=== PATIENT | male | born 1970 | race Caucasian/White ===

== ENCOUNTER 2017-01-08 14:56 | Emergency (ER) | payer OTHER ==
[2017-01-08 15:08] VITALS: BP 166/86
[2017-01-08 15:23] LABS: Hematocrit 40.4 % (42.0-52.0); Hemoglobin 14.2 gm/dL (13.5-18.0); Mean Cell Volume 82.3 fl (78-100); Mean Corpuscular Hemoglobin 28.9 pg (27-31); Mean Corpuscular Hgb Conc 35.1 g/dl (32-36); Mean Platelet Volume 9.4 fl (6.0-9.5); Neutrophil # 3.9 K/mm3 (1.3-6.0); Platelet Count 305 K/mm3 (150-450); Red Blood Count 4.91 M/mm3 (4.7-6.0); Red Cell Distribution Width 12.3 % (11.5-14.0); White Blood Count 6.2 K/mm3 (4.0-10.5)
--- OUTSIDE RECORDS SUMMARY | 2017-01-08 15:27 | XMS REPORT | Continuity of Care Document ---
:1970 Author Organization [facility] ([facility]) Address [address] [place] [address] Phone [phone] Care Team Providers Name Role Phone Mar Acuña Primary Care Provider [phone] Source Comments This disclosure is being made pursuant to the Care Everywhere program, applicable federal and state laws, and may not contain all informaitonavailable regarding this patient.[facility] ([facility]) Active Allergies and Adverse Reactions No Known Allergies Current Medications Prescription Sig. Disp. Refills Start Date End Date Status aspirin 325 mg tablet take 1 Tab by Active mouth daily. ibuprofen 800 mg tablet Take 800 mg by Active mouth 3 times daily. Indications: Pain topiramate 50 mg tablet Take 50 mg by Active mouth at bedtime multivitamin tablet Take 1 Tab by Active mouth daily ascorbic acid (VITAMIN Take 500 mg by Active C) 500 mg tablet mouth daily lamoTRIgine 25 mg tablet Take 50 mg by Active mouth daily clonazePAM 0.5 mg tablet Take 0.5 mg by Active mouth as needed losartan 50 mg tablet Take 1 Tab (50 mg 180 Tab 4 02/14/2015 Active total) by mouth 2 times daily Active Problems Problem Noted Date Aortic aneurysm 06/03/2012 Overview: Dilated aortic root, valve sparing aortic root replacement with a Hemashield graph on 06/13/02. Aortic insufficiency, moderate 06/03/2012 Other History 06/03/2012 Overview: History of recurrent headaches, depression, and anxiety. Shoulder pain 06/24/2005 Overview: Right subscapularis repair on 09/08/05. Lumbago 08/16/2004 Scoliosis and Kyphoscoliosis 08/16/2004 Overview: Scoliosis, posterior spinal effusion with chronic low back pain. 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 Resolved Problems Problem Noted Date Resolved Date Thoracic aneurysm without mention of rupture 10/24/2008 06/03/2012 Follow-up examination, following unspecified surgery 10/24/2005 06/03/2012 Immunizations Name Dates Previously Given Next Due Influenza, PF 06/03/2012 Social History Tobacco Use Types Packs/Day Years Used Date Former Smoker Cigarettes 1 14 Quit: 07/27/2001 Alcohol Use Drinks/Week oz/Week Comments Yes 1 or more times a week Last Filed Vital Signs Vital Sign Reading Time Taken Blood Pressure 134/65 01/18/2015 12:53 PM CDT Pulse 70 01/18/2015 12:53 PM CDT Temperature 36.9 C (98.4 F) 01/18/2015 12:53 PM CDT Respiratory Rate 16 01/18/2015 12:53 PM CDT Height 1.825 m (5' 11.85") 01/18/2015 12:53 PM CDT Weight 88.8 kg (195 lb 12.3 oz) 01/18/2015 12:53 PM CDT Body Mass Index 26.66 01/18/2015 12:53 PM CDT Oxygen Saturation 99% 01/18/2015 12:53 PM CDT Plan of Care Health Maintenance Due Date Last Done Comments Hepatitis B Vaccine (1 of 3 - Primary Series) 1970 Tdap Vaccine 1981 MMR Vaccine 1988 Td Vaccine 1988 Lipid Disorder Screening 05/05/2007 05/05/2002 Influenza Vaccine: Seasonal (#1) 02/25/2016 06/03/2012 Results from Last 3 Months Not on file
[2017-01-08 15:31] LABS: Urine Bilirubin Negative (NEGATIVE); Urine Blood Negative /ul (NEGATIVE); Urine Ketone 5 mg/dL (NEGATIVE); Urine Nitrite Negative (NEGATIVE); Urine Protein Negative (NEGATIVE); Urine Specific Gravity 1.025 SP.GR. (1.005-1.030); Urine Urobilinogen Normal (NORMAL)
[2017-01-08 15:32] LABS: Urine Appearance Clear; Urine Bacteria None Seen; Urine Color Yellow; Urine RBC None Seen /hpf (0-5); Urine WBC None Seen /hpf (0-5)
[2017-01-08 15:34] LABS: Albumin * 4.3 gm/dl (3.4-5.0); Anion Gap 16.7 mmol/L (6.8-13.8); BUN/Creatinine Ratio 17.9 (9.0-21.6); Bilirubin, Total 0.7 mg/dL (0.0-1.1); Ca. Corrected For Albumin 8.8 mg/dL (8.4-10.2); Calcium * 9.4 mg/dL (7.9-10.9); Potassium 3.7 mmol/L (3.4-4.6); Total Protein 7.8 gm/dL (6.2-8.2)
--- NOTE | 2017-01-08 16:02 | ERNOTE ---
ER Male HPI Date of Service: 01/08/17 Stated Complaint: KIDNEY STONE? ER Male: other - flank pain Time Seen by Provider: 01/08/17 15:13 Source: patient Exam Limitations: no limitations Immunizations: IMMUNIZATION HX Immunizations Up to Date Yes History of Influenza Vaccine No Hx Pneumococcal Vaccination No Allergies/Adverse Reactions: Allergies No Known Allergies Allergy (Unverified 01/08/17 15:07) - History of Present Illness Narrative: patient presents with 8 days of off and on right flank pain that radiates to right hip area. He has had kidney stones before and was leaving town so wanted to get checked. No abdominal pain. No testicular pain. No fever. Nothing makes it better or worse. Has not seen anyone else for this. Pain mild now, doesn't want anything for this. No vomiting. No dysuria Timing: Present: intermittent Quality: Present: mild Onset Location: Present: right flank Radiation: Present: other - right hip Activities at Onset: Present: none Modifying Factors - (Improves): Present: other - nothing Modifying Factors - (Worsens): Present: other - nothing Associated Symptoms: Absent: fever/chills, nausea, vomiting, dysuria Prior Treatment: Absent: recently seen Review of Systems - Review of Systems Constitutional: Absent: fever Respiratory: Absent: shortness of breath Cardiology: Absent: chest pain Gastrointestinal/Abdominal: Absent: abdominal pain Genitourinary: Present: other - no testicular pain. Absent: pain Musculoskeletal: Present: See HPI Skin: Absent: rash Neurological: Absent: weakness - Patient's Past Medical History Patient History - Cardiac/Respiratory: Other Patient History - Cancer: No Hx of Cancer Patient History - Surgical Procedures: Other, Hernia Repair - Social History Living Situations: home Psych History: No pertinent hx - Immunizations Immunizations Up to Date: Yes Hx Pneumococcal Vaccination: No History of Influenza Vaccine: No Physical Exam - Physical Exam General Appearance: Present: alert, no apparent distress Eye Exam: Normal inspection: bilateral, PERRL: bilateral Ears, Nose, Throat: Present: normal ENT inspection Neck: Present: normal inspection Respiratory: Present: no respiratory distress, normal breath sounds, no accessory muscle use, lungs clear Cardiovascular/Chest: Present: regular rate, rhythm, normal peripheral pulses Gastrointestinal/Abdominal: Present: normal bowel sounds, nontender, nondistended, soft Back Exam: Absent: CVA tenderness (R), CVA tenderness (L) Extremity Exam: Present: normal inspection Neurological Exam: Present: alert, normal mood/affect, no motor/sensory deficits Skin Exam: Absent: skin rash ED Progress - Results and Orders Patient's Lab Results:: I have reviewed the patient's lab results. - Vital Signs Patient's Vital Signs:: I have reviewed the patient's vital signs. Vital Signs: Vital Signs 01/08/17 15:03 Temperature 36.9 C Pulse Rate 75 Respiratory 14 Rate Blood Pressure 166/86 O2 Sat by Pulse 97 Oximetry - Progress/Reassessment Chief Complaint: Urinary Tract Problems Progress Note-Subjective: 01/08/17 16:[address] having a CT scan. As he had a Hx of stone this was offered but declined by patient, he understands risks and benefits. Nothing to suggest pyelo, kidney stone unlikely but declines CT. nothign to suggest dissection or other acute life threat. i discussed warning signs and reasons to return as well as the need for close f/u. Departure Clinical Impression: Flank pain - Departure Disposition: Home self-care Condition: Stable Instructions: Flank Pain, [id number] Additional Instructions: Rest. Fluids. Follow-up in3 days with your primary doctor. Return if you change your mind about having the CT we discussed, if you develop fever, increased pain or if your condition worsens or changes in any way.
== END 2017-01-08 15:55 | disposition home or self-care (01) ==
LOC: ER 14:56
DX: R10.9 Unspecified abdominal pain (principal); Z87.442 Personal history of urinary calculi